=== PATIENT | male | born 1995 | race Caucasian/White ===

== ENCOUNTER 2021-05-25 07:24 | Emergency (ER) | payer OTHER ==
[~2021-05-25] VITALS: Ht 177.8 cm; Wt 95.2 kg
[2021-05-25] MEDS ORDERED: CEPHALEXIN500 M1 PO (08:06)
[2021-05-25] MEDS ORDERED: HYDROCODON-ACE1 EA11 PO (08:38)
== END 2021-05-25 09:29 | disposition home or self-care (01) ==
LOC: ED 07:24
DX: S67.197A Crushing injury of left little finger, initial encounter (principal); W23.0XXA Caught, crushed, jammed, or pinched between moving objects, initial encounter; Z23 Encounter for immunization
CPT/HCPCS: 11760; 73140; 90471; 90715; 99283-25; A9270

== ENCOUNTER 2023-01-16 23:10 | Emergency (ER) | payer OTHER ==
[~2023-01-16] VITALS: Ht 177.8 cm; Wt 97.0 kg
[~2023-01-16 23:10] MED LIST: CEPHALEXIN500 M1 PO; HYDROCODON-ACE1 EA11 PO
[2023-01-16 23:32] LABS: HEMOGLOBIN 16.8 g/dL (12.0-18.0); MCHC 34.1 g/dl (30-36)
[2023-01-16 23:35] LABS: BASOPHILS 0.9 % (0-2); EOSINOPHILS 1.9 % (0-6); HEMATOCRIT 49.1 % (35.0-50.0); LYMPHOCYTES 24.3 % (24-44); MCV 87.9 fl (81-99); MONOCYTES 5.6 % (0-12); NEUTROPHILS 67.3 % (39-80); PLATELET COUNT 322 K/uL (140-440); RBC 5.59 M/ul (4.3-5.7); RDW 12.8 (10.5-15.0)
[2023-01-16 23:42] LABS: ALBUMIN 4.4 g/dL (3.4-5.0); ALBUMIN/GLOBULIN RATIO 1.47 (1.1-2.4); ANION GAP 13.5 (7-21); BILIRUBIN, TOTAL 0.4 ng/dL (0.2-1.0); BUN/CREATININE RATIO 10.89 (6.0-28.6); CALCIUM 9.3 mg/dL (8.5-10.1); CREATININE, SERUM 1.01 mg/dL (0.70-1.30); POTASSIUM 3.5 mmol/L (3.5-5.1); PROTEIN, TOTAL 7.4 g/dL (6.4-8.2)
[2023-01-16 23:47] LABS: AMPHETAMINES, URINE NEGATIVE (NEGATIVE); BARBITURATES, URINE NEGATIVE (NEGATIVE); BENZODIAZEPINE, URINE NEGATIVE (NEGATIVE); BUPRENORPHINE, URINE NEGATIVE (NEGATIVE); COCAINE, URINE NEGATIVE (NEGATIVE); ECSTASY, URINE NEGATIVE (NEGATIVE); METHADONE, URINE NEGATIVE (NEGATIVE); OXYCODONE, URINE NEGATIVE (NEGATIVE)
[2023-01-16 23:48] LABS: CANNABINOID, URINE POSITIVE (NEGATIVE); OPIATES, URINE NEGATIVE (NEGATIVE); PHENCYCLIDINE, URINE NEGATIVE (NEGATIVE)
[2023-01-17] MEDS ORDERED: SYNTHROID25 MCG PO (00:18)
[2023-01-17 00:26] VITALS: BP 129/81
--- NOTE | 2023-01-18 14:38 | EKG ---
[facility] [address] [facility] [place], [place] [address] Signed Normal sinus rhythm Normal ECG No previous ECGs available Confirmed by ZEFERINO BANEGAS MD ([id number]) on 01/18/2023 2:38:05 PM Electronically Signed By: ZEFERINO BANEGAS 01/18/23 1438 PATIENT NAME: JOAQUÍN PEOPLES Electrocardiogram DATE OF : [birth year] PHYSICIAN: ZEFERINO BANEGAS REPORT #: [id number] REPORT IS CONFIDENTIAL AND NOT TO BE RELEASED WITHOUT AUTHORIZATION
== END 2023-01-17 00:26 | disposition home or self-care (01) ==
LOC: ED 23:10
PROVIDERS: Family Medicine
DX: E03.9 Hypothyroidism, unspecified (principal); R00.2 Palpitations
CPT/HCPCS: 36415; 71045; 80053; 80307; 84443; 85025; 85379; 93005; 93010